=== PATIENT | female | born 1970 | race Caucasian/White ===

== ENCOUNTER 2024-11-03 09:45 | Outpatient (RCR) | payer BC, OTHER, SELFPAY ==
--- OUTSIDE RECORDS SUMMARY | 2024-10-01 15:40 | XMS_ITS | Clinical Summary ---
Author Organization [facility] Address [place], [place] [address] Care Team Providers Care Seconds Handler Name Role Phone Malika Dorothy Amarilis MORROW Primary Care Provider [phone] Allergies Active Allergy Reactions Criticality Noted Date Comments Adhesive Rash 02/02/2014 Sulfa (Sulfonamide Antibiotics) Rash 08/01 Rash on hands Medications acetaminophen (TYLENOL EXTRA STRGTH) 500 mg tablet Take 1-2 tabs every 6 hours as needed. Max acetaminophen dose: 4000mg in 24 hrs. 100 tablet 3 03/20/20 11 Active lactobacillus rhamnosus, GG, (CULTURELLE) 10 billion cell capsule Take 1 capsule by mouth 3 times daily with meals. 0 12/06/19 16 Active famotidine (PEPCID AC) 20 mg tablet 10/09/19 20 Active cetirizine (ZYRTEC) 10 mg tablet Take 1 tablet by mouth once daily. 0 12/15/19 20 Active cholecalciferol (VITAMIN D3) 2,000 unit capsule Take 1 Capsule (2,000 units) by mouth once daily. 05/02/20 22 Active propranoloL (INDERAL) 10 mg tabletIndications: Generalized anxiety disorder Take 1 tablet as needed 10 Tablet 1 06/03/20 24 Active rosuvastatin (CRESTOR) 20 mg tabletIndications: Hyperlipidemia, unspecified hyperlipidemia type Take 1 Tablet (20 mg) by mouth at bedtime. 90 Tablet 3 06/05/20 24 Active atovaquone-proguan il, 250-100 mg, (MALARONE) 250-100 mg tabletIndications: Pharmacologic therapy Take 1 Tablet by mouth once daily. Begin 2 days before going to [facility] and continue until 1 week after exposure for prevention of malaria. 14 Tablet 06/22/20 24 Active FLUoxetine (PROZAC) 40 mg capsuleIndications :Other specified anxiety disorders Take 1 Capsule (40 mg) by mouth once daily in the morning. 90 Capsule 2 08/03/20 24 Active Active Problems Problem Noted Date Diagnosed Date Colon polyp 09/12/2023 Overview (09/12/2023): Colonoscopy 08/2023 TA, repeat in 7 years Pap smear for cervical cancer screening 06/21/20 Overview (06/16/2024): 05/2024 NIL/HPV negative Plan: HPV based testing in 5 years Gastroesophageal reflux disease with esophagitis 12/09/2015 Overview (12/09/2015): EGD 11/2015 reflux Extruded lumbar disk herniation 12/28/2013 Radiculopathy, lumbar region 12/28/2013 Rectocele 04/01/2013 Rectal bleeding 05/23/2012 Overview (05/23/2012): Colonoscopy 04/2012 internal hemorrhoids repeat at age 52 Anxiety state, unspecified 02/28/2012 Dysthymic disorder 02/28/2012 Kidney stone 10/20/2010 Overview (10/20/2010): Calcium oxalate Vitamin D deficiency 10/20/2010 Grave's disease 08/28/2010 Overview (08/28/2010): Followed by [facility] Encounters Date Type Department Care Team Description 07/31/2024 Refill [facility] [address] [place] [address] Dorothy Daly, Refill Request (Fluoxetine) from Last 3 Months Immunizations Name Administration Dates Next Due COVID-19 vaccine (Moderna 100mcg/0.5mL) CHRISTINA FISHER 12/29/2020 Hepatitis A (Adult) 06/22/2024 Influenza Virus, Unspecified 06/14/2020 Influenza, IIV4 06/15/2022, 9,07/09/2018,2016 Influenza, Injectable, Mdck, Quadrivalent, W/preservative 07/18/2023,06/28/2021 Td (Age >=7 Years) 05/02/2022 Tdap 10/20/2010 Typhoid (injectable) 06/22/2024 Zoster (Shingrix-RZV, recombinant) 06/12/2023 Family History Medical History Relation Name Comments Good Health Brother 1 Good Health Brother 2 Hyperlipidemia Father Coronary artery disease Mother Hyperlipidemia Mother Stroke Mother cerebellar stro ke Cancer-breast No Family History Cancer-colon No Family History Relation Name Status Comments Brother 1 Brother 2 Father Alive Mother Alive Social History Tobacco Use Types Packs/Day Years Used Date Smoking Tobacco: Never Smokeless Tobacco: Never Tobacco Cessation:Counseling Given: No Alcohol Use Standard Drinks/Week Comments Yes 0 (1 standard drink = 0.6 oz pur e alcohol) PHQ-2 Answer Date Recorded PHQ-2 TOTAL SCORE 0 06/03/2024 Social Connections Answer Date Recorded Frequency of Communication with Friends and Fami ly Not on file 06/13/2024 Alcohol Use Answer Date Recorded How often do you have a drink containing alcohol ? 2 06/12/2023 How many drinks containing a lcohol do you have on a typical day when you are drinking? 0 06/12/2023 How often do you have five or more drinks on one occasion? 0 06/12/2023 Financial Resource Strain Answer Date R ecorded Difficulty of Paying Living Expenses 3 06/12/2023 Difficulty of Paying Living Expenses Not on file 06/12/2023 Food Insecurity Answer Date Recorded Worried About Running Out of Food in the Last Ye ar 1 06/12/2023 Transportation Needs Answer Date Record ed Lack of Transportation (Medical) 1 06/12/2023 Housing Stability Answer Date Recorded Unable to Pay for Housing in the Last Year 1 06/12/2023 Comments No Sex and Gender Information Value Date Recorded Sex Assigned at Female 04/03/2021 7:00 AM CDT Legal Sex Female 8:00 AM RESEARCH NURSE PRACTITIONER Gender Identity Female 04/03/2021 7:00 AM CDT Sexual Orientation Straight 04/03/2021 7: 00 AM CDT Occupation Industry Job Start Date Job End Date high school biology teacher at [employer] Not on file Not on file Not on file Obstetrics History Para Term AB IAB SAB Ectopic Multiple Livin g Live Births 2 2 2 2 Date Outcome GA Total Labor Labor/2nd/3rd Weight Sex Type Anes PTL Yamila A1 A5 Name Clin Para 4.31 kg (9 lb 8 oz) M Vag Living Para 4.76 kg (10 lb 8 oz) F Vag Living Last Filed Vital Signs Vital Sign Reading Time Taken Comments Blood Pressure 117/76 06/22/2024 8:10 AM CDT Pulse 58 06/22/2024 8:10 AM CDT Temperature 36.9 C (98.4 F) 04/03/2021 1:16 PM CDT Respiratory Rate 14 09/10/2023 9:47 AM RESEARCH NURSE PRACTITIONER Oxygen Saturation 98% 06/22/2024 8:10 AM CDT Inhaled Oxygen Concentration - - Weight 105.6 kg (232 lb 11.2 oz) 06/22/2024 8:10 AM CDT Height 176.8 cm (5' 9.61) 06/03/2024 7:35 AM CD T Body Mass Index 33.77 06/03/2024 7:35 AM CDT Plan of Treatment Health Maintenance Due Date Last Done Comments Zoster (shingles) series for age 50+ (2 of 2) 08/07/2023 06/12/2023 COVID-19 vaccine series (2023- season) 2024 07/18/2023, 06/15/2022, 08/18/2021, Additional history exists Influenza for age 50-64 05/31/2024 07/18/20 23, 06/15/2022, 06/28/2021, Additional history exists Mammogram for age 45-75 09/12/2024 09/12/2023, 05/01 BMI (ht and wt on same day) for age 18+ 06/03/2025 06/03/2024, 06/12/2023, 05/02/2022, Additional history exists Depression screening for age 12+ 06/05/2025 06/05/2024, 06/03/2024, 06/12/2023, Additional history exists Lipids for age 45-75 06/03/2029 06/03/2024, 06/12/2023, 05/02/2022, Additional history exists Pap test for age 21-65 06/03/2029 , 06/03/2024, 06/12/2023, Additional history exists Colonoscopy through age 75 09/10/203009/10, 09/10/2023, 09/10/2023, Additional history exists Tetanus booster 05/02/2032 05/02/2022, 10/20/2010 Tdap Completed 10/20/2010 HIV for age 15-65 Completed 06/12/2023 Hepatitis C screening for age 18-79 Completed 06/12/2023 Pneumococcal series for age 6-49 Aged Out No longer eligible based on patient's age to complete this topic Procedures Procedure Name Priority Date/Time Associated Diagnosis Comments LIPID PANEL W REFLEX MEASURED LDL Routine 06/03/2024 8:35 AM CDT Hyperlipidemia, unspecified hyperlipidemia type HPV HIGH RISK Routine 06/03/2024 8:18 AM CDT Pap smear for cervical cancer screening XR MAMMO DIRK BILAT SCREEN Routine 09/12/2023 10:16 AM RESEARCH NURSE PRACTITIONER Encounter for screening mammogram for malignant neoplasm of breast COLONOSCOPY SCREENING Routine 09/10/2023 8:34 AM RESEARCH NURSE PRACTITIONER Screening for colon cancer ANTI HIV 1/2 Routine 06/12/2023 8:43 AM CDT Screening for HIV (human immunodeficiency virus) ANTI HCV Routine 06/12/2023 8:43 AM CDT Need for hepatitis C screening test from Last 3 Months or Most Recently Relevant to Health Maintenance Results * (ABNORMAL) LIPID PANEL W REFLEX MEASURED LDL (06/03/2024 8:35 AM CDT) CHOLESTEROL,TOTAL 215(H) 100 - 199 mg/dL 06/03/2024 5:24 PM CDT [facility] Comment: Cholesterol, Total Reference Ranges Desirable <200 mg/dL Borderline 200-239 mg/dL High >=240 mg/dL TRIGLYCERIDES 86 <150 mg/dL 06/03/2024 5:24 PM CDT [facility] HDL CHOLESTEROL 60 >40 mg/dL 5:24 PM CDT [facility] NON-HDL CHOLESTEROL 155(H) <145 mg/dl 06/03/2024 5:24 PM CDT [facility] CHOL/HDL RATIO 3.58 <4.50 06/03/2024 5:24 PM CDT [facility] LDL CHOLESTEROL 138(H) <=130 mg/dL 06/03/2024 5:24 PM CDT [facility] VLDL CHOLESTEROL 17 <=30 mg/dL 06/03/2024 5:24 PM CDT [facility] PROVIDER ORDERED STATUS RANDOM 06/03/2024 5:24 PM CDT [facility] Blood BLOOD SPECIMEN / Unknown Venipuncture / Unknown 06/03/2024 8:35 AM CDT 06/03/2024 8:35 AM CDT us Dorothy Daly DO CHEMISTRY Final Resu lt [facility] [address] * HPV HIGH RISK (06/03/2024 8:18 AM CDT) TYPE 16 Negative Negative 06/05/2024 5:03 PM CDT [facility] TYPE 18 Negative Negative 06/05/2024 5:03 PM CDT [facility] OTHER HIGH RISK TYPES Negative Negative 06/05/2024 5:03 PM CDT [facility] Other (Cervical) Non-Blood / Unknown 06/03/2024 8:18 AM CDT 06/04/2024 1:59 PM CDT Narrative [facility] - 06/05/2024 5:03 PM CDT HPV types 16, 18, 31, 33, 35, 39, 45, 51, 52, 56, 58, 59, 66 and 68 DNA were undetectable or below the pre-set threshold. Methodology: Vero Jan 4800 HPV Test Dorothy Daly DO MICROBIOLOGY Final Resu lt [facility] [address] [place] [address], [place] * XR MAMMO DIRK BILAT SCREEN (09/12/2023 10:16 AM RESEARCH NURSE PRACTITIONER) Anatomical Region Laterality Modality BREASTS, Breast Left, Breast Right Bilateral Mammography Impressions 09/12/2023 3:44 PM RESEARCH NURSE PRACTITIONER There is no radiographic evidence for malignancy. Recommend annual mammograms. MAMMOGRAM ASSESSMENT: ACR 1 Negative PATIENTS: You will also receive a letter with your examination results in an easy to read format. If you have questions about your results, please contact your referring provider. Narrative 09/12/2023 3:44 PM RESEARCH NURSE PRACTITIONER For Patients: As a result of the Cures Act, medical imaging exams and procedure reports are released immediately into your electronic medical record. You may view this report before your referring provider. If you have questions, please contact your health care provider. XR MAMMO DIRK BILAT SCREEN [[id number]] CLINICAL HISTORY: This is an asymptomatic 52 y.o. patient. INDICATION FOR EXAM: Mammogram Screening. TECHNIQUE: CC & MLO views were obtained. This study was evaluated with the assistance of Computer-Aided Detection. Breast Tomosynthesis was used in interpretation. COMPARISON FILM: Yes 05/01/22 [facility] FINDINGS: The breasts are heterogeneously dense, which may obscure small masses. There are no dominant masses, suspicious micro calcifications or areas of architectural distortion. Dorothy Amarilis Daly DO MAMMO Final Resu lt * COLONOSCOPY (09/10/2023 8:39 AM RESEARCH NURSE PRACTITIONER) 09/10/2023 8:39 AM RESEARCH NURSE PRACTITIONER Narrative Transcriptions Jason Griffiths MD - 09/10/2023 9:39 AM CST Patient Name: Opal Elkins Procedure Date: 09/10/2023 Gender: Female Date of : 1970 Admit Type: Outpatient Procedure: Colonoscopy Proceduralist: Jason Griffiths MD , Tram Guajardo RN(Nurse), Hawa Powers (Nurse) Referring MD: Dorothy Daly Indications/Pre-Op Diagnosis: Screening for colorectal malignant neoplasm, Last colonoscopy: April 2012 Medications: Fentanyl 100 micrograms IV, Midazolam 4 mgIV, The level of sedation administered wasmoderate Procedure Description: The patient had risks, benefits and alternatives explained to andgave informed consent. The patient had a stable cardiopulmonary status and judged an adequate candidate for conscious sedation. The endoscope [id number] was passed through the anus andadvanced to the cecum, identified by appendiceal orifice and ileocecal valve.The colonoscopy was performed without difficulty. The patient toleratedthe procedure well. The quality of the bowel preparation was good. Anatomical landmarks were photographed. Complications: No immediate complications. Estimated Blood Loss & Specimen: Estimated blood loss: none. Specimen collected - Yes and sent to Laboratory Findings: The perianal and digital rectal examinations were normal. A 3 mm polyp was found in the sigmoid colon. The polyp was sessile.The polyp was removed with a cold snare. Resection and retrieval were complete. The exam was otherwise without abnormality. Impressions/Post-Op Diagnosis: - One 3 mm polyp in the sigmoid colon, removed with a cold snare. Resected and retrieved. - The examination was otherwise normal. Recommendation: - Patient has a contact number available for emergencies. The signsand symptoms of potential delayed complications were discussed with the patient. Return to normal activities tomorrow. Written discharge instructions were provided to the patient. - Resume previous diet. - Continue present medications. - Await pathology results. - Repeat colonoscopy is recommended. The colonoscopy date will be determined after pathology results from today's exam become available for review. Moderate Sedation: A time out was performed before the procedure. Moderate (conscious) sedation was administered by the endoscopy nurse and supervised bythe endoscopist. The following parameters were monitored: oxygensaturation, heart rate, blood pressure, EKG, CO2, respiratory rate, adequacy of pulmonary ventilation and reponse to care. Please refer to the patient's medical record flowsheets and nursing notes for moderate sedation details. Total physician intraservice time was 16 minutes. Jason Griffiths MD 09/10/2023 9:38:59 AM This report has been signed electronically. Note Initiated On: 09/10/2023 8:39 AM Procedure Code(s): --- Professional --- 04453, Colonoscopy, flexible; with removalof tumor(s), polyp(s), or other lesion(s) bysnare technique Diagnosis Code(s): --- Professional --- Z12.11, Encounter for screening formalignant neoplasm of colon D12.5, Benign neoplasm of sigmoid colon CPT copyright 2021 [employer]. All rights reserved. The codes documented in this report are preliminary and upon front end developer designer reviewmay be revised to meet current compliance requirements. Scope In: 9:13:22 AM Scope Withdrawal Time 0 hours 9 minutes 40 seconds Scope Out: 9:27:46 AM us Jason Griffiths MD PROCEDURE ORD Final Res ult * ANTI HCV (06/12/2023 8:43 AM CDT) HEPATITIS C ANTIBODY Non-Reacti ve Non-React goyo 06/13/2023 2:06 PM CDT [facility] Comment:Please note, per www .CDC.gov: If a patient is known to be at high risk of HCV infection, or is symptomatic, and the physician's suspicion of HCV infection is high, HCV RNA testing is often employed and is of diagnostic value, even after an initial negative anti-HCV test result. Blood BLOOD SPECIMEN / Unknown Venipuncture / Unknown 06/12/2023 8:43 AM CDT 06/12/2023 8:43 AM CDT us Dorothy Daly DO SEND OUTS Final Resu lt [facility] SENDOUT [place]NAL ZIP [address] [place] [id number] * ANTI HIV 1/2 [09159.0] (06/12/2023 8:43 AM CDT) HIV-1/HIV-2 SCREEN Non-Reacti ve Non-Reacti ve 06/12/2023 8:30 PM CDT [facility] Comment:HIV-1 p24 and HIV-1/ HIV-2 Ab Not Detected. Blood BLOOD SPECIMEN / Unknown Venipuncture / Unknown 06/12/2023 8:43 AM CDT 06/12/2023 8:43 AM CDT Dorothy Daly DO SEND OUTS Final Resu lt Performing Organization Address City/[facility]/ZIP Co de Phone Number [facility] [address] [place] [address], from Last 3 Months or Most Recently Relevant to Health Maintenance Insurance [employer] [id number] [address] [employer] [id number] Care Teams Seconds Handler Relationship Specialty Start Date End Date Dorothy Daly DO [address] [place] [address] PCP - General Family Practice 04/29/23
== END 2024-12-08 11:22 | disposition home or self-care (01) ==
PROVIDERS: PCP Family Medicine; Visit Provider Orthopaedic Surgery
DX: M25.512 Pain in left shoulder (principal); M75.02 Adhesive capsulitis of left shoulder; M25.612 Stiffness of left shoulder, not elsewhere classified; M62.81 Muscle weakness (generalized); Z51.89 Encounter for other specified aftercare
CPT/HCPCS: 97110; 97140; 97161; 97162; 97530